=== PATIENT | male | born 1965 | race Caucasian/White ===

== ENCOUNTER 2022-06-10 07:47 | Day surgery (SDC) | payer BC ==
[~2022-06-10] VITALS: Ht 162.6 cm; Wt 95.5 kg
[~2022-06-10 07:47] MED LIST: ADULT LOW DOSE81 MG PO; AMLODIPINE BESYL5 MG PO; HYDROCHLOROTHIA25 MG PO; OMEPRAZOLE20 MG PO; RYBELSUS14 MG PO; VIAGRA50 MG PO; ZESTRIL40 MG PO
--- NOTE | 2022-06-10 09:50 | NUR ---
06/10/22 0950 Aleks,Mariza 0914 PT ARRIVED TO PACU ON 2L VIA NC, PT WAKES AND DENIES PAIN AND NAUSEA. PT REORIENTED TO PACU AND ENOCURAGED TO PASS GAS/AIR. PT EASILY FALLS BACK TO SLEEP WITH SNORING NOTED.
--- NOTE | 2022-06-11 07:23 | OR ---
[facility] [address], [place] [address] Signed DATE OF OPERATION: 06/10/2022 SURGEON: Estephania Davis MD PREOPERATIVE DIAGNOSIS: Screening. POSTOPERATIVE DIAGNOSES: 1. A 6 mm pedunculated polyp at 20 cm/rectosigmoid junction (snare). 2. A 7 mm pedunculated polyp at 18 cm/rectum (snare). 3. Enlarged prostate. PROCEDURE: Colonoscopy with snare polypectomy. ESTIMATED BLOOD LOSS: None. INDICATIONS: Dave is a 56-year-old gentleman asked to see me for his initial screening colonoscopy. He believes I have helped his just several weeks ago. He has no lower GI complaints. There is no family history of colon cancer or polyps. In the office, I gave him a pamphlet on colonoscopy. We reviewed the nature of the test along with the risks including, but not limited to gas bloating, crampy abdominal pain, bleeding, perforation requiring surgery, and missed diagnosis. We also reviewed the need for IV conscious sedation. He had expressed understanding and wished to proceed. DESCRIPTION OF PROCEDURE: Dave was taken into our endoscopy suite and placed in the left lateral decubitus position. He was given IV sedation with 5 mg of Versed and 100 mcg of fentanyl. A digital rectal exam was performed. No external hemorrhoids. Good sphincter tone. He has a moderately enlarged and indurated prostate gland. No dominant nodules. The adult colonoscope was then introduced and advanced all the way around into the cecum under direct visualization of camera without difficulty. His prep was quite excellent. We could easily see the appendiceal orifice and ileocecal valve. The scope was slowly withdrawn. We took pictures throughout for photodocumentation. He had no diverticulosis. He had a polyp in his rectosigmoid junction as well as the proximal rectum. Both were divided with the help of hot snare. The polyp at 18 cm was lost in our suction. Hemostasis was excellent. The scope had been retroflexed and there was no additional pathology noted above the anal canal. After this, the gas was suctioned out Electronically Signed By: ESTEPHANIA DAVIS MD 06/11/22 0723 PATIENT NAME: DAVE POOLE OPERATIVE REPORT DATE OF : 61 REPORT #: [id number] PHYSICIAN: ESTEPHANIA DAVIS MD PCP: GERI AGOSTO NP REPORT IS CONFIDENTIAL AND NOT TO BE RELEASED WITHOUT AUTHORIZATION [facility] [address], [place] [address] Signed and colonoscope removed. Dave tolerated the procedure quite well. RECOMMENDATIONS: I will see Dave back in my office in 7 to 14 days to review his results. MD BRENDA Melchor/BETTYL /[id number] cc: MD Geri Melchor NP Patient Chart Copies: ESTEPHANIA DAVIS MD, ANGIE L NP ~ Electronically Signed By: ESTEPHANIA DAVIS MD 06/11/22 0723 PATIENT NAME: VIRGILIODAVE NOÉ OPERATIVE REPORT DATE OF : 61 REPORT #: [id number] PHYSICIAN: ESTEPHANIA DAVIS MD PCP: GERI AGOSTO NP REPORT IS CONFIDENTIAL AND NOT TO BE RELEASED WITHOUT AUTHORIZATION
--- NOTE | 2022-06-15 12:50 | PATH ---
[facility] [address], [place] [address] Signed SPECIMEN(S): A SIGMOID POLYP AT 20 CM SPECIMEN SOURCE: A. SIGMOID POLYP AT 20 CM CLINICAL HISTORY: Screening FINAL PATHOLOGIC DIAGNOSIS: Sigmoid polyp at 20 cm: - Hyperplastic polyp. JVR:sm:C2NR MICROSCOPIC EXAMINATION: Histologic sections of all submitted blocks are examined by light microscopy. These findings, together with the gross examination, support the pathologic diagnosis. GROSS DESCRIPTION: The specimen, labeled "Dave Poole, #1," and designated on the requisition "sigmoid polyp at 20," is received in formalin and consists of one romero soft tissue fragment that measures 0.6 cm in greatest dimension. The specimen is inked, trisected, and entirely submitted in cassette (A1). FB (under the direct supervision of a pathologist) The Gross Description was prepared using a voice recognition system. The report was reviewed for accuracy; however, sound-alike word errors, addition and/or deletions may occur. If there is any question about this report, please contact Client Services. PERFORMING LABORATORY: The technical component was performed by [facility], [address] [place] [id number] (CLIA# [id number]). Professional interpretation was performed by [facility] - [facility], [address] [place] [id number] (CLIA#: [id number]). Diagnostician: Av Navarrete MD Pathologist Electronically Signed 06/15/2022 PATIENT NAME: DAVE POOLE PATHOLOGY DATE OF : 61 REPORT #: [id number] PHYSICIAN: ESTEFANI PATHOLOGY PCP: IMELDA AGOSTO NP REPORT IS CONFIDENTIAL AND NOT TO BE RELEASED WITHOUT AUTHORIZATION [address] [address] Signed Copies: ~ PATIENT NAME: DAVE POOLE PATHOLOGY DATE OF : 61 REPORT #: [id number] PHYSICIAN: ESTEFANI WISE PCP: IMELDA AGOSTO ELECTROCARDIOGRAPH TECHNICIAN REPORT IS CONFIDENTIAL AND NOT TO BE RELEASED WITHOUT AUTHORIZATION
== END 2022-06-10 10:17 | disposition home or self-care (01) ==
LOC: DS 07:47 → OPS 07:47 → DS 09:00 → OPS 09:00
PROVIDERS: ATTEND Colon & Rectal Surgery
PROC: 0D5N8ZZ Destruction of Sigmoid Colon, Via Natural or Artificial Opening Endoscopic (ICD-10-PCS; principal; 2022-06-10 09:00)
DX: Z12.11 Encounter for screening for malignant neoplasm of colon (principal); N40.0 Benign prostatic hyperplasia without lower urinary tract symptoms; E66.9 Obesity, unspecified; E11.9 Type 2 diabetes mellitus without complications; I10 Essential (primary) hypertension; K21.9 Gastro-esophageal reflux disease without esophagitis; M19.90 Unspecified osteoarthritis, unspecified site; Z79.84 Long term (current) use of oral hypoglycemic drugs; Z68.36 Body mass index [BMI] 36.0-36.9, adult; K63.5 Polyp of colon
CPT/HCPCS: 99153; G0500; J2250; J3010; J7121